=== PATIENT | male | born 1970 | race African-American/Black ===

== ENCOUNTER 2017-08-21 19:39 | Emergency (ER) | payer MEDICAID ==
[2017-08-21 20:27] VITALS: RESP 16
--- NOTE | 2017-08-21 20:57 | EDPHY ---
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 Painless. No discoloration. Does have history of IV drug use 1 month ago to same area but denies pain, discoloration or immediate complications. No paresthesia. No flu-like symptoms. No fever or chills. PHYSICAL EXAM (Prior to examination, patient consented to physical exam, hands were washed and my usual and customary physical exam procedures followed) 1) GENERAL: Well-developed, well-nourished, alert and oriented. Appears to be in no acute distress. 2) HEAD: Normocephalic 3) HEENT: Pupils equal, round, reactive to light bilaterally. 4) LUNGS: Breathing comfortably. 5) MUSCULOSKELETAL: Right hand: Negative kanavel. Fingers are nontender. No discoloration. There is mildly appreciable soft tissue swelling to the dorsum of the right hand specifically overlying the 3rd metacarpal. No discoloration. Normal color. Normal temperature. No tenderness. Soft compartments. Normal coloration. 6) SKIN: normal coloration 7) VASCULAR: pulses and cap refill present are brisk 8) NEUROLOGIC: Radial, ulnar, median nerve function intact with no deficits appreciated on exam DIFFERENTIAL DIAGNOSIS: in no particular order including but not limited to fracture, sprain, compartment syndrome, abscess, cellulitis, deep space infection, necrotizing fasciitis, retained needle foreign body Procedure: Splint AVelcro volar splint was applied by ER environmental field services technician. After application of the splint I returned and re-examined the patient. The splint was adequately immobilizing the joint and distal to the splint the patient's circulation and sensation were intact. Patient shows no signs of compartment syndrome. Was given orthopedic precautions. Smoking Status: Former smoker Constitutional: Initial Vital Signs Temperature (C) 36.8 C 08/21/17 20:22 Heart Rate 89 08/21/17 20:22 Respiratory Rate 16 08/21/17 20:22 Blood Pressure 141/83 H 08/21/17 20:22 O2 Sat (%) 94 08/21/17 20:22 O2 Delivery Mode Room Air Allergies/Adverse Reactions: No Known Allergies Allergy (Unverified 08/21/17 20:26) MDM/Departure - MDM Imaging Results: Imaging Impressions Hand X-Ray 08/21/17 20:53 Impression: No source for pain identified. Images reviewed myself ED Course/Re-evaluation: This patient has been re-evaluated with serial examinations. Doubt deep space infection, doubt necrotizing fasciitis, doubt cellulitis, doubt abscess, doubt infectious tenosynovitis. We discussed possibility of overuse mechanism. I have recommended splint, elevation, follow up with Hand surgery. The meantime given usual customary orthopedic precautions and instructions. All questions and concerns addressed by myself. - Depart Disposition: Home, Routine, Self-Care Clinical Impression: Swelling of right hand Condition: Good Instructions: Hand Sprain (ED) Additional Instructions: Return to the ER immediately if you experience discoloration, have worsening pain, numbness, tingling, or any other symptoms that concern you. If you received x-rays in the emergency department today, be advised, that ligamentous , tendon, muscular, and other non-bony injury cannot be fully ruled out. Try to keep your affected extremity elevated above the level of your chest, and keep cold packs on the affected area whenever possible Referrals: Edd Burciaga MD [Medical Doctor] - 2-3 days, call for appt. (Dr. Burciaga is a hand surgeon)
[2017-08-21 21:59] VITALS: BP 148/91; PULSE 77; TEMP 97.9; O2SAT 91
== END 2017-08-21 21:57 | disposition home or self-care (01) ==
DX: M79.89 Other specified soft tissue disorders (principal); Z87.891 Personal history of nicotine dependence
CPT/HCPCS: L3908

== ENCOUNTER 2017-08-26 14:39 | Emergency (ER) | payer MEDICAID ==
[2017-08-26 14:47] VITALS: BP 137/90; PULSE 94; RESP 18; TEMP 98.1; O2SAT 97
== END 2017-08-26 14:49 | disposition left against medical advice (07) ==
DX: Z53.21 Procedure and treatment not carried out due to patient leaving prior to being seen by health care provider (principal)